=== PATIENT | male | born 1985 | race Caucasian/White ===

== ENCOUNTER → 2018-08-14 14:00 | Outpatient (CLI) | payer OTHER, SELFPAY ==
--- NOTE | 2018-08-14 | DI.CT.S_ITS ---
PROCEDURE: CT ABDOMEN PELVIS WO/W CON INDICATIONS: KIDNEY STONES TECHNIQUE: Optional 5 mm thick noncontrast images acquired from the diaphragm to the symphysis pubis. After the administration of intravenous contrast, 5 mm thick images acquired from the diaphragm to the symphysis pubis after a 10-minute delay. 2 mm thick coronal and sagittal reformats were then performed of the kidneys and ureters. For radiation dose reduction, the following was used: automated exposure control, adjustment of mA and/or kV according to patient size. COMPARISON: None. FINDINGS: Image quality: Excellent. Lung bases: 6 mm sub-solid nodule adjacent to lateral pleural of right lower lobe is seen series 4 image 2. Mild atelectasis in the posterior medial aspect of left lung base is seen. Pleural-based 4 mm sub-solid nodule is also seen in lateral aspect of left lower lobe. Series 4 #8. 7 mm nodular density is seen in posterior aspect of the right lung base series 4 image 16. Heart size is normal. Urinary system: Both kidneys are normal in size, without hydronephrosis or obstructing renal stone on pre-contrast images. Nonobstructing 4 mm stone is seen in midpole of left kidney. Nonobstructing 2 mm calculi are noted in lower pole of left kidney. No right sided renal stone. No perinephric fat stranding. There is normal bilateral renal enhancement. Renal calyces appear normal in morphology when filled with contrast. Opacified portions of both ureters demonstrate normal caliber. Bladder wall thickness is normal. No calcified bladder stones. Other solid organs: Liver is normal in size and enhancement. Gallbladder is within normal limits. Biliary system is non dilated. Pancreas enhances normally. Spleen is normal in size and enhancement. No adrenal nodules. Peritoneum and bowel: Bowel loops demonstrate normal wall thickness and caliber. No free fluid or air. There is a small hiatal hernia. Appendix is visualized and is within normal limits.. Mild sigmoid diverticulosis is seen, and no CT evidence of acute diverticulitis. Nodes and vessels: No retroperitoneal or mesenteric adenopathy by size criteria. Aorta and inferior vena cava are normal in size. Abdominal wall: No ventral hernias. Pelvis: No pathologic free pelvic fluid. No inguinal hernias or adenopathy. Bones: No suspicious bony lesions. No vertebral body compression fractures. IMPRESSION: 1. Tiny nonobstructing left renal calculi. No hydronephrosis. No enhancing renal lesion. Normal appearing bilateral ureters or urinary bladder. 2. Small hiatal hernia. No bowel obstruction. No free fluid or free air. 3. Subcentimeter sub-solid appearing nodular density in bilateral lung bases as above, consider followup CT of chest study for in 6-12 month for evaluation of stability. Dictated by: Orville Gaines M.D. on 08/14/2018 at 15:17 Approved by: Orville Gaines M.D. on 08/14/2018 at 15:35
== END ==
PROVIDERS: Visit Provider Specialist
DX: N20.0 Calculus of kidney (principal); K44.9 Diaphragmatic hernia without obstruction or gangrene; R91.8 Other nonspecific abnormal finding of lung field; K57.30 Diverticulosis of large intestine without perforation or abscess without bleeding
CPT/HCPCS: 74178; Q9967